=== PATIENT | male | born 1985 | race Caucasian/White ===

== ENCOUNTER 2024-07-03 10:56 | Emergency (ER) | payer OTHER ==
[~2024-07-03] VITALS: Ht 188 cm; Wt 110.7 kg
[2024-07-03] MEDS ORDERED: METH4TAB3 PO (11:23)
[2024-07-03] MEDS ORDERED: VALA100031 PO (11:23)
[2024-07-03] MEDS ORDERED: KETO10TA2 PO (11:23)
--- NOTE | 2024-07-03 11:26 | ERN ---
General Chief Complaint: Skin Rash/Abscess Stated Complaint: SHINGLES Time Seen by MD: 11:05 Time Seen by Midlevel: 11:05 Source: patient History of Present Illness Initial Comments Patient is a 39-year-old male coming in from assisted for evaluation of possible shingles. According to the patient he was referred by the assisted physician for further evaluation. He states the rash started proximally five days ago. Denies any vision changes. Denies any oral lesions. Denies any ear pain. Patient has no other complaints at this time. Past Medical History Past Medical History: GERD Past Surgical History: None ROS Dictation CONSTITUTIONAL: Negative except for HPI HEAD/FACE: Negative except for HPI EENT: Negative except for HPI RESPIRATORY: Negative except for HPI GASTROINTESTINAL/ABDOMINAL: Negative except for HPI GENITOURINARY: Negative except for HPI MUSCULOSKELETAL: Negative except for HPI INTEGUMENTARY: Negative except for HPI NEUROLOGICAL/PSYCH: Negative except for HPI HEMATOLOGIC/LYMPHATIC: Negative except for HPI All Systems Negative, Except as noted above. 13 point review of systems assessed and all negative except for above. Physical Exam Physical Exam Dictation Vital Signs reviewed General Appearance: Alert, oriented x 3, no acute distress, well developed, nourished. Head and Face: non-traumatic. Eyes: PERRL, pink conjunctivas, eyelid no trauma, anterior chamber with arcus senilis. Ears: Pinnas intact and no signs of trauma or erythema ear canals clear and no discharge TM no erythema Nose: No discharge, no bleeding. Oropharynx: Mouth normal, tongue pink, pharynx clear,no erythema, tonsils no exudates, no abscesses noted, mucous membrane moist Neck: Supple, non-tender, no thyromegaly, no masses, no JVD, no bruits Breast:Deferred Chest:No tenderness, no crepitus, no paradoxical movement, no retractions Lungs:Clear, well-ventilated, symmetric, no rales, no wheezing, no rhonchi, no stridor, good breath sounds bilaterally Heart: Regular rate, regular rhythm, no murmur, no gallops Vascular: no peripheral edema, Abdomen: Soft, positive bowel sounds, nondistended, no guarding, nontender, no rebound, no masses no hepatomegaly, no splenomegaly, no Chand's sign, no hernias. Rectal: Deferred Genital: Deferred Neurological: Normal speech, motor function intact, sensory function intact Musculoskeletal: Neck nontender, full range of motion, back nontender, full range of motion, Extremities: nontender, full range of motion Skin: Vesicular lesions to the left cheek, there was no purulent drainage, area is mildly tender to touch without surrounding erythema or induration, there was no drainable abscess, Lymphatic: Deferred MDM MDM: Patient is a 39-year-old male coming in from [facility] for evaluation of possible shingles. According to the patient he was referred by the assisted physician for further evaluation. He states the rash started proximally five d ays ago. Denies any vision changes. Denies any oral lesions. Denies any ear pain. Patient has no other complaints at this time. On physical examination patient is in no acute distress there is a vesicular lesion overlying the left side of the face, the rash has spread along a dermatomal pattern. No lesions are noted in the left ear or in the oral cavity. There was no facial droop. ENT examination is unremarkable. There was no swelling or redness to the ear canal or the external ear. There was no erythema and swelling of the auricle. Neurological examination is unremarkable. Cranial nerves are intact. Patient is ambulatory with a normal gait. Patient was given oral analgesia along with valacyclovir 1000 mg and prednisone in the ER. Patient will be discharged back to assisted with supportive management. Differential diagnosis: Shingles, Arena Youngblood syndrome, Burnett's palsy There are no social concerns with this patient. Prescription drug management Prescriptions will include: Valacyclovir, Medrol pack, ketorolac Medical management and examination interpretation discussions were had by me with other qualified healthcare professionals as indicated for the patient's care. ED Course Orders Procedure Category Date Status Time Hydrocodone/Apap PHA 07/03/24 Verified 10/325 Tab ([place] Part 10) 11:30 Valacyclovir Hcl PHA 07/03/24 Verified (Valtrex) 11:30 Prednisone 20mg Tab PHA 07/03/24 Verified (Deltasone/Orasone 2 11:30 Vital Signs Date Time Temp Pulse Resp B/P (MAP) Pulse Ox O2 Delivery O2 Flow Rate FiO2 07/03/24 11:09 98.6 74 20 126/76 98 Room Air 0 DX & DISP Disposition: Discharge Departure Impression: Primary Impression: Shingles Condition: Stable Scripts Methylprednisolone (Medrol) 4 Mg Tab.ds.pk 1 TAB PO AD for 6 Days, #21 TAB 0 Refills 6 on day 1 then reduce by one tablet daily until gone Prov: NAA VICK 07/03/24 Ketorolac Tromethamine (Ketorolac Tromethamine) 10 Mg Tablet 1 TAB PO TID for pain for 5 Days, #15 TAB 0 Refills Prov: NAA VICK 07/03/24 Valacyclovir HCl (Valacyclovir) 1,000 Mg Tablet 1 TAB PO TID for 7 Days, #21 TAB 0 Refills Prov: NAA VICK 07/03/24 Additional Instructions: Your physical examination is consistent with shingles. I have given you medication that should help improve her symptoms over the next couple of days. If you develop any new or worsening symptoms please report to the ER for further evaluation. Referrals: SELF,REFERRAL (PCP) Time of Disposition: 11:22 I have reviewed the case, and I agree with, Diagnosis and Plan I performed the substantive portion of the visit. I have reviewed and personally made and approve the management plan that is documented in the note by myself or the GERARDO. I acknowledge for responsibility for the patient's management plan. NAA VICK Jul 03, 2024 11:26
--- NOTE | 2024-07-03 12:00 | NUR ---
ASSUMED CARE AT THIS TIME. PT MOVED INTO [facility] FOR ASSESSMENT AND MEDICATION PASS.
[2024-07-03] MEDS: HYDROcodone/acetaMINOPHEN 10/325 MG TAB PO ONE (12:13)
[2024-07-03] MEDS: valaCYCLOvir HCL 500 MG TABLET PO ONE (12:13)
[2024-07-03] MEDS: predniSONE 20 MG TABLET PO ONE (12:13)
[2024-07-03 12:25] VITALS: BP 133/87; PULSE 87; RESP 20; TEMP 97.9; O2SAT 99
== END 2024-07-03 12:25 ==
LOC: EDH 10:56 → EEVIPCON 10:56 → EDH 12:25
DX: B02.9 Zoster without complications (principal); K21.9 Gastro-esophageal reflux disease without esophagitis
CPT/HCPCS: 99284